=== PATIENT | male | born 1945 | race African-American/Black ===

== ENCOUNTER 2024-03-15 17:57 | Inpatient (IN) | payer MEDICARE, MEDICAID ==
[~2024-03-15] VITALS: Ht 175.3 cm; Wt 94.9 kg
[2024-03-15] MEDS: SODIUM CHLORIDE 0.9% 1,000 ML IV ONE (18:24)
[2024-03-15 19:23] LABS: BASOPHILS % 0.5 % (0.0-2.0); EOSINOPHILS % 0.6 % (0.0-5.0); HEMATOCRIT. 38.7 % (42.0-52.0); LYMPHOCYTES % 21.5 % (20.0-50.0); MEAN CORPUSCULAR HEMOGLOBIN 30.8 pg (28.0-32.0); MEAN CORPUSCULAR HGB CONC 33.5 g/dL (31.0-37.0); MONOCYTES % 11.6 % (2.0-8.0); NEUTROPHILS % 65.8 % (40.0-76.0); PLATELET 155 x1000/uL (130-400); RED BLOOD CELL COUNT 4.21 mill/uL (4.7-6.1); RED CELL DISTRIBUTION WIDTH 15.8 % (11.6-14.6); WHITE BLOOD COUNT 4.7 x1000/uL (4.5-11.0)
[2024-03-15 19:33] LABS: CARBON DIOXIDE 28 mEq/L (21-32); CHLORIDE 103 mEq/L (98-107); POTASSIUM 4.2 mEq/L (3.5-5.1); SODIUM 140 mEq/L (136-145)
[2024-03-15 19:34] LABS: CALCIUM 9.3 mg/dL (8.7-10.4)
[2024-03-15 19:38] LABS: TROPONIN I HIGH SENSITIVITY 5 ng/L (3.0-53)
[2024-03-15 19:39] LABS: CREATININE 1.4 mg/dL (0.6-1.3); GLUCOSE 125 mg/dL (70-105); UREA NITROGEN BLOOD 12 mg/dL (9-23)
[2024-03-15 19:40] LABS: ALANINE AMINOTRANSFERASE 36 IU/L (10-49); ALBUMIN 3.9 g/dL (3.2-4.8); ASPARTATE AMINOTRANSFERASE 49 IU/L (<34)
[2024-03-15 19:41] LABS: BILIRUBIN DIRECT 0.1 mg/dL (<=3.0); BILIRUBIN TOTAL 0.7 mg/dL (0.1-1.0); PROTEIN TOTAL 6.9 g/dL (6.0-8.3)
[2024-03-15] MEDS ORDERED: DOCUSATE SODIUM 100MG CAPSULE PO PRN (21:00)
[2024-03-15] MEDS ORDERED: CLONIDINE 0.1MG TABLET PO PRN (21:00)
[2024-03-15] MEDS ORDERED: ACETAMINOPHEN 325MG TABLET PO PRN ×2 (21:00)
[2024-03-15] MEDS ORDERED: NA PHOS,M-B/NA PHOS,DI-BA ENEMA 118ML PR PRN (21:00)
[2024-03-15] MEDS ORDERED: FAMOTIDINE 20MG TABLET PO SCH (21:00)
[2024-03-15] MEDS ORDERED: GUAIFENESIN 200MG/10ML SUGAR FREE UDC PO PRN (21:00)
[2024-03-15] MEDS ORDERED: MAGNESIUM/ALUMINUM HYDROXIDE/SIMETHICONE 30ML UDC PO PRN (21:00)
[2024-03-15] MEDS ORDERED: HYDROCODONE/ACETAMINOPHEN 5/325MG TABLET PO PRN (21:00)
[2024-03-15] MEDS ORDERED: DEXTROSE 50% WATER 50ML SYRINGE IV PRN (21:00)
[2024-03-15] MEDS ORDERED: ONDANSETRON HCL 4MG/2ML INJ IV PRN (21:00)
[2024-03-15] MEDS ORDERED: NALOXONE HCL 0.4MG/ML VIAL IV PRN (21:30)
[2024-03-15] MEDS ORDERED: MAGNESIUM 2 G PREMIX 50 ML IV NR (21:30)
[2024-03-15] MEDS ORDERED: BLOOD SUGAR DIAGNOSTIC STRIP TEST SCH (21:45)
[2024-03-15 22:00] VITALS: BP 119/72; PULSE 78; RESP 18; TEMP 36.3068
[2024-03-16] VITALS: BP 117/65; PULSE 71; RESP 19; TEMP 36.28068; O2SAT 98
[2024-03-16] MEDS: SODIUM CHLORIDE 0.9% 1,000 ML IV SCH (01:30)
[2024-03-16 02:42] LABS: LACTIC ACID 2.8 mmol/L (0.4-2.0); TROPONIN I HIGH SENSITIVITY 9 ng/L (3.0-53)
[2024-03-16 02:49] LABS: D-DIMER 1.48 mg/L FEU (<0.50); PARTIAL THROMBOPLASTIN TIME 23.2 sec (23.4-31.0); PROTHROMBIN TIME 11.1 sec (9.6-11.0)
[2024-03-16] MEDS: MAGNESIUM 2 G PREMIX 50 ML IV NR (03:14)
[2024-03-16 04:00] VITALS: BP 99/46; PULSE 55; RESP 19; TEMP 36.50292; O2SAT 98
[2024-03-16] MEDS: INSULIN LISPRO 100 UNITS/ML SUBCUT SCH (07:10)
[2024-03-16] MEDS ORDERED: ASPI-1406 PO (07:56)
[2024-03-16] MEDS ORDERED: ATOR40TA70 PO (07:56)
[2024-03-16] MEDS ORDERED: LOSA25TA26 PO (07:56)
[2024-03-16] MEDS ORDERED: DICL100G58 TP (07:56)
[2024-03-16 08:00] VITALS: BP 147/72; PULSE 53; RESP 19; TEMP 35.50284; O2SAT 96
[2024-03-16] MEDS: THIAMINE HCL 100MG TABLET PO SCH (09:14)
[2024-03-16] MEDS: ENOXAPARIN 40MG/0.4ML SYR SUBCUT SCH (09:15)
[2024-03-16] MEDS: LOSARTAN 25 MG TABLET PO SCH (09:15)
[2024-03-16] MEDS: ATORVASTATIN CALCIUM 40MG TABLET PO SCH (09:15)
[2024-03-16] MEDS: ASPIRIN 81MG EC TABLET PO SCH (09:15)
[2024-03-16 11:03] LABS: BASOPHILS % 0.4 % (0.0-2.0); HEMATOCRIT. 38.1 % (42.0-52.0); HEMOGLOBIN. 12.7 g/dL (14.0-18.0); MEAN CORPUSCULAR HEMOGLOBIN 30.6 pg (28.0-32.0); MEAN CORPUSCULAR HGB CONC 33.2 g/dL (31.0-37.0); MEAN CORPUSCULAR VOLUME 92.3 fL (80.0-94.0); MEAN PLATELET VOLUME 9.2 fl (7.4-10.4); MONOCYTES % 9.4 % (2.0-8.0); NEUTROPHILS % 68.2 % (40.0-76.0); PLATELET 152 x1000/uL (130-400); RED BLOOD CELL COUNT 4.13 mill/uL (4.7-6.1); RED CELL DISTRIBUTION WIDTH 15.8 % (11.6-14.6); WHITE BLOOD COUNT 5.2 x1000/uL (4.5-11.0)
[2024-03-16 11:08] LABS: CHLORIDE 104 mEq/L (98-107); POTASSIUM 4.5 mEq/L (3.5-5.1); SODIUM 140 mEq/L (136-145)
[2024-03-16 11:09] LABS: CALCIUM 9.2 mg/dL (8.7-10.4); CARBON DIOXIDE 31 mEq/L (21-32)
[2024-03-16 11:14] LABS: CREATININE 1.2 mg/dL (0.6-1.3); GLUCOSE 102 mg/dL (70-105); TRIGLYCERIDE 87 mg/dL (0-150); UREA NITROGEN BLOOD 14 mg/dL (9-23)
[2024-03-16 11:15] LABS: LDL CHOLESTEROL 214 mg/dL (5-100)
[2024-03-16 11:16] LABS: CHOLESTEROL 274 mg/dL (<200); HDL CHOLESTEROL 37 mg/dL (>55)
[2024-03-16 11:18] LABS: T4 FREE 1.02 ng/dL (0.89-1.76); THYROID STIMULATING HORMONE 0.83 uIU/mL (0.55-4.78)
[2024-03-16 12:00] VITALS: BP 126/65; PULSE 57; RESP 19; TEMP 36.55848; O2SAT 96
[2024-03-16] MEDS ORDERED: ATROPINE SULFATE 1MG/10ML SYR IV PRN (14:30)
[2024-03-16] MEDS: MAGNESIUM OXIDE 400MG TABLET PO SCH (15:05)
[2024-03-16 16:00] VITALS: BP 121/58; PULSE 53; RESP 18; TEMP 36.3918; O2SAT 96
[2024-03-16 19:10] LABS: TROPONIN I HIGH SENSITIVITY 48 ng/L (3.0-53)
[2024-03-16 19:13] LABS: CREATINE KINASE 141 IU/L (46-171)
[2024-03-16 19:14] LABS: FOLIC ACID (FOLATE) SERUM 11.36 ng/mL (>5.38)
[2024-03-16 19:16] LABS: VITAMIN B12 SERUM 433 pg/mL (211-911)
[2024-03-16 20:00] VITALS: BP 123/59; PULSE 51; RESP 16; TEMP 37.2252; O2SAT 97
[2024-03-16] MEDS: FAMOTIDINE 20MG TABLET PO SCH (20:50)
[2024-03-17] VITALS: BP 128/73; PULSE 54; RESP 20; TEMP 36.50292; O2SAT 100
[2024-03-17 04:00] VITALS: BP 147/56; PULSE 49; RESP 18; TEMP 36.3918; TEMP 36.39180; O2SAT 98
[2024-03-17 13:33] VITALS: BP 123/73; PULSE 54; TEMP 97.7; O2SAT 100
== END 2024-03-17 15:20 | disposition home or self-care (01) | DRG 73 ==
LOC: ER 17:57 → 7EST 19:52 → EDBEDREQ 20:06 → EDBEDREQTM 20:06
PROVIDERS: ADMIT Hospitalist; ATTEND Hospitalist
DX: G90.89 Other disorders of autonomic nervous system (principal); N17.0 Acute kidney failure with tubular necrosis; E86.0 Dehydration; E78.5 Hyperlipidemia, unspecified; D63.8 Anemia in other chronic diseases classified elsewhere; E83.42 Hypomagnesemia; I25.10 Atherosclerotic heart disease of native coronary artery without angina pectoris; I95.9 Hypotension, unspecified; R00.1 Bradycardia, unspecified; R73.9 Hyperglycemia, unspecified; I10 Essential (primary) hypertension; I44.1 Atrioventricular block, second degree; I25.2 Old myocardial infarction; Z79.82 Long term (current) use of aspirin; Z79.899 Other long term (current) drug therapy
CPT/HCPCS: 36415; 71045; 80048; 80061; 80076; 82550; 82607; 82746; 82962; 83036; 83605; 83735; 83880; 83930; 84439; 84443; 84484; 85025; 85379; 93005; 97162; 97165; 99285; J1650; J3475; J7030